=== PATIENT | female | born 1950 | race Caucasian/White ===

== ENCOUNTER 2020-12-23 09:04 | Outpatient (CLI) | payer OTHER, SELFPAY ==
[2020-12-23 09:51] LABS: Basophils Percent Auto 0.5 % (0.2-1.2); Eosinophils Absolute Auto 0.2 K/mm3 (0-0.3); Eosinophils Percent Auto 2.6 % (0-4.4); Hematocrit 44.1 % (37.0-47.0); Hemoglobin 14.6 g/dL (12.0-15.0); Immature Granulocyte Absolute 0.03 K/mm3 (0.00-0.031); Immature Granulocyte Percent A 0.5 % (0-0.5); Lymphocytes Absolute Auto 1.83 K/mm3 (0.9-3.2); Lymphocytes Percent Auto 30.3 % (18.3-44.2); Mean Corpuscular HGB Conc 33.1 g/dl (32-36); Mean Corpuscular Hemoglobin 31.7 pg (26-34); Mean Corpuscular Volume 95.9 fl (80-100); Mean Platelet Volume 10.1 fl (7.4-10.4); Monocytes Absolute Auto 0.4 K/mm3 (0.1-0.6); Monocytes Percent Auto 6.5 % (2.6-8.5); Neutrophils Absolute Auto 3.6 K/mm3 (1.3-6.7); Neutrophils Percent Auto 59.6 % (45.5-73.1); Platelet Count Result 173 k/mm3 (150-375); Red Cell Distribution Width 13.3 % (11.5-14.5)
[2020-12-23 10:17] LABS: Alanine Aminotransferase 34 U/L (4-35); Albumin Level 4.4 g/dL (3.5-5.1); Alkaline Phosphatase 96 U/L (38-126); Anion Gap 10 mmol/L (8-16); Aspartate Amino Transferase 33 U/L (14-36); Bilirubin,Total 0.6 mg/dL (0.2-1.3); Blood Urea Nitrogen 22 mg/dL (7-17); Calcium 9.9 mg/dL (8.4-10.2); Carbon Dioxide 24 mmol/L (22-30); Chloride 102 mmol/L (98-107); Cholesterol 215 mg/dL (0-200); Estimated Glomerular Filt Rate > 60; Glucose 156 mg/dL (65-105); HDL Direct 60 mg/dL; LDL Cholesterol Direct 116 mg/dL; Sodium 136 mmol/L (137-145); Triglycerides 155 mg/dL (<150)
[2020-12-23 10:36] LABS: Free T4 Free Thyroxine 1.04 ng/mL (0.78-2.19); Vitamin D 25 Hydroxy 57.7 ng/mL
[2020-12-23 10:47] LABS: Total Triiodothyronine (T3) 0.99 NG/ML (0.97-1.69)
[2020-12-23 10:54] LABS: MALB Creatinine Ratio < 7.7 mg/g (0-30); Microalbumin Urine Random < 6.0 mg/L (0-16.7)
[2020-12-23 11:15] LABS: Folic Acid 6.7 ng/mL (2.76->20)
== END 2020-12-23 09:05 | disposition home or self-care (01) ==
PROVIDERS: PCP Family Medicine; Visit Provider Nurse Practitioner
DX: Z13.0 Encounter for screening for diseases of the blood and blood-forming organs and certain disorders involving the immune mechanism (principal); Z13.6 Encounter for screening for cardiovascular disorders; Z13.220 Encounter for screening for lipoid disorders; Z13.29 Encounter for screening for other suspected endocrine disorder; R73.01 Impaired fasting glucose; R53.83 Other fatigue; I10 Essential (primary) hypertension; Z00.00 Encounter for general adult medical examination without abnormal findings; E55.9 Vitamin D deficiency, unspecified; R80.9 Proteinuria, unspecified
CPT/HCPCS: 36415; 80053; 80061; 82043; 82306; 82607; 82746; 84439; 84443; 84480; 85025

== ENCOUNTER 2021-01-18 14:08 | Outpatient (CLI) | payer OTHER, SELFPAY | END 2021-01-18 14:09 | disposition home or self-care (01) | LOC: ANHCOVIDVC 14:08 | PROVIDERS: PCP Family Medicine | DX: Z23 Encounter for immunization (principal) | CPT/HCPCS: 0001A; 91300 ==

== ENCOUNTER 2021-02-08 12:57 | Outpatient (CLI) | payer OTHER, SELFPAY | END 2021-02-08 12:58 | disposition home or self-care (01) | LOC: ANHCOVIDVC 12:57 | PROVIDERS: PCP Family Medicine | DX: Z23 Encounter for immunization (principal) | CPT/HCPCS: 0002A; 91300 ==

== ENCOUNTER 2021-03-31 15:07 | Outpatient (CLI) | payer OTHER, SELFPAY | END 2021-03-31 15:08 | disposition home or self-care (01) | LOC: ANHWCLAB 15:11 | PROVIDERS: PCP Family Medicine; Visit Provider Obstetrics & Gynecology Gynecology | DX: E55.9 Vitamin D deficiency, unspecified (principal) | CPT/HCPCS: 36415; 82306 ==

== ENCOUNTER 2021-04-02 12:36 | Outpatient (CLI) | payer OTHER, SELFPAY ==
[2021-04-02 15:55] LABS: Vitamin D 25 Hydroxy 61.2 ng/mL
== END 2021-04-02 12:37 | disposition home or self-care (01) ==
LOC: ANHWCLAB 12:38
PROVIDERS: PCP Family Medicine; Visit Provider Obstetrics & Gynecology Gynecology
DX: E55.9 Vitamin D deficiency, unspecified (principal)
CPT/HCPCS: 36415; 82306

== ENCOUNTER 2021-08-31 12:28 | Outpatient (CLI) | payer OTHER, SELFPAY ==
[2021-08-31 13:14] LABS: Alanine Aminotransferase 34 U/L (4-35); Albumin Level 4.8 g/dL (3.5-5.1); Alkaline Phosphatase 102 U/L (38-126); Anion Gap 11 mmol/L (8-16); Aspartate Amino Transferase 34 U/L (14-36); Bilirubin,Total 0.9 mg/dL (0.2-1.3); Blood Urea Nitrogen 16 mg/dL (7-17); Calcium 10.2 mg/dL (8.4-10.2); Carbon Dioxide 26 mmol/L (22-30); Chloride 101 mmol/L (98-107); Cholesterol 167 mg/dL (0-200); Estimated Glomerular Filt Rate > 60; Glucose 137 mg/dL (65-110); HDL Direct 70 mg/dL; Potassium 3.2 mmol/L (3.4-5.0); Sodium 138 mmol/L (137-145); Triglycerides 137 mg/dL (<150)
[2021-08-31 13:25] LABS: LDL Cholesterol Direct 65 mg/dL
[2021-08-31 13:30] LABS: Basophils Percent Auto 0.7 % (0.2-1.2); Eosinophils Absolute Auto 0.2 K/mm3 (0-0.3); Hematocrit 43.8 % (37.0-47.0); Immature Granulocyte Absolute 0.02 K/mm3 (0.00-0.031); Immature Granulocyte Percent A 0.4 % (0-0.5); Lymphocytes Absolute Auto 1.75 K/mm3 (0.9-3.2); Lymphocytes Percent Auto 32.5 % (18.3-44.2); Mean Corpuscular HGB Conc 34.2 g/dl (32-36); Mean Corpuscular Volume 102.3 fl (80-100); Mean Platelet Volume 10.5 fl (7.4-10.4); Monocytes Absolute Auto 0.3 K/mm3 (0.1-0.6); Monocytes Percent Auto 6.1 % (2.6-8.5); Neutrophils Absolute Auto 3.1 K/mm3 (1.3-6.7); Neutrophils Percent Auto 57.3 % (45.5-73.1); Platelet Count Result 177 k/mm3 (150-375); Red Blood Count 4.28 M/mm3 (4.2-5.4); Red Cell Distribution Width 12.4 % (11.5-14.5); White Blood Count 5.4 K/mm3 (4.5-10.0)
[2021-08-31 13:45] LABS: Total Triiodothyronine (T3) 1.21 NG/ML (0.97-1.69)
[2021-08-31 14:19] LABS: Free T4 Free Thyroxine 1.21 ng/mL (0.78-2.19)
[2021-08-31 18:02] LABS: Creatinine Urine 113.8 mg/dL
[2021-08-31 18:18] LABS: MALB Creatinine Ratio < 5.3 mg/g (0-30); Microalbumin Urine Random < 6.0 mg/L (0-16.7)
[2021-08-31 20:41] LABS: Vitamin D 25 Hydroxy 55.4 ng/mL
== END 2021-08-31 12:29 | disposition home or self-care (01) ==
PROVIDERS: PCP Family Medicine; Visit Provider Nurse Practitioner Family
DX: E11.29 Type 2 diabetes mellitus with other diabetic kidney complication (principal); I10 Essential (primary) hypertension; E78.2 Mixed hyperlipidemia; E03.9 Hypothyroidism, unspecified; E55.9 Vitamin D deficiency, unspecified
CPT/HCPCS: 36415; 80053; 80061; 82043; 82306; 84439; 84443; 84480; 85025

== ENCOUNTER 2022-05-10 10:59 | Emergency (ER) | payer OTHER, SELFPAY ==
--- NOTE | ~2022-05-10 | CT_ITS ---
EXAMINATION: CTA BRAIN/CAROTID DATE: 05/10/2022 12:42 INDICATION: Left cranial nerve III palsy TECHNIQUE: Computed tomographic angiography (CTA) of the head and neck was performed with 100 mL Omni paque-350 intravenous contrast. Multiplanar reconstructions and maximum intensity projection 3D-recon structions of the carotid arteries and of the intracranial arteries were created by the technologist on a separate workstation. Precontrast CT of the head was also obtained. Automated exposure control and iterative reconstruction technique were employed.The dose-length product was 1514.53 mGy-cm. COMPARISON: None. FINDINGS: Carotid arteries: Normal caliber of the visualized aortic arch and great vessels arising from the arch with no hemodyna mically significant stenosis, aneurysm or dissection. There is small amount of atherosclerotic calcif ic location at the bilateral carotid bulbs with 0% stenosis of the of both the left and right carotid bulbs relative to normal distal artery lumen diameter (NASCET criteria). . Cervical soft tissues, as visualized superior mediastinum and apices of lungs are unremarkable. Moderate to severe lower cervi aamir spondylosis. 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 No acute intracranial hemorrhage, acute infarction or abnormal extra axial fluid collection. Ventricles are normal and symmetric. No mass/mass effect. Dayana nges of bilateral intraocular lens replacement. The orbits, paranasal sinuses and mastoid air cells a re normal. Intracranial arteries Atherosclerotic calcifications without hemodynamically significant stenosis along the bilateral carot id siphons and at the intracranial bilateral vertebral arteries. There is no hemodynamically signific ant stenosis in the vertebral, basilar and internal carotid arteries. Vertebral arteries are codomina nt. There are no aneurysms identified. Both A1 and P1 segments are patent. Cerebral arterial arbori zation appears symmetric. No abnormally enhancing brain lesions. IMPRESSION: 1. Small amount of atherosclerotic plaque with 0% stenosis of the left and right carotid bulbs relati ve to normal distal artery lumen diameter (NASCET criteria). 2. Small old lacunar infarct at the left thalamus. No acute intracranial process. 3. Small amount of nonhemodynamically significant atherosclerotic calcification at the bilateral olvera tid siphons and bilateral vertebral arteries. Otherwise unremarkable cerebral CT angiogram with no si gnificant stenosis, aneurysm or dissection. Reviewed, dictated and finalized at location A. IMPRESSION: 1. Small amount of atherosclerotic plaque with 0% stenosis of the left and righ t carotid bulbs relative to normal distal artery lumen diameter (NASCET criteri a). 2. Small old lacunar infarct at the left thalamus. No acute intracranial proces s. 3. Small amount of nonhemodynamically significant atherosclerotic calcification at the bilateral carotid siphons and bilateral vertebral arteries. Otherwise u nremarkable cerebral CT angiogram with no significant stenosis, aneurysm or dis section.
[2022-05-10 11:04] VITALS: BP 137/88; PULSE 93; RESP 16; TEMP 36.6; O2SAT 97
[2022-05-10 11:44] LABS: Basophils Percent Auto 0.6 % (0.2-1.2); Eosinophils Absolute Auto 0.1 K/mm3 (0-0.3); Eosinophils Percent Auto 0.9 % (0-4.4); Hematocrit 42.1 % (37.0-47.0); Hemoglobin 13.9 g/dL (12.0-15.0); Immature Granulocyte Absolute 0.03 K/mm3 (0.00-0.031); Immature Granulocyte Percent A 0.4 % (0-0.5); Lymphocytes Absolute Auto 1.71 K/mm3 (0.9-3.2); Lymphocytes Percent Auto 25.1 % (18.3-44.2); Mean Corpuscular Hemoglobin 32.5 pg (26-34); Mean Corpuscular Volume 98.4 fl (80-100); Mean Platelet Volume 10.2 fl (7.4-10.4); Monocytes Absolute Auto 0.5 K/mm3 (0.1-0.6); Monocytes Percent Auto 7.8 % (2.6-8.5); Neutrophils Absolute Auto 4.4 K/mm3 (1.3-6.7); Neutrophils Percent Auto 65.2 % (45.5-73.1); Platelet Count Result 176 k/mm3 (150-375); Red Blood Count 4.28 M/mm3 (4.2-5.4); Red Cell Distribution Width 13.2 % (11.5-14.5); White Blood Count 6.8 K/mm3 (4.5-10.0)
--- NOTE | 2022-05-10 11:45 | ED.HA ---
HPI - Headache General Chief Complaint: Headache <Vaishali Bain PA-C - Last Filed: 05/10/22 13:54> Stated Complaint: HEADACHE, FROM EYE DR <MARTHA Gipson Last Filed: 05/10/22 13:54> Time Seen by Provider: 05/10/22 11:24 <Vaishali Bain PA-C - Last Filed: 05/10/22 13:54> Source: patient <MARTHA Gipson Last Filed: 05/10/22 13:54> Mode of arrival: EMS <MARTHA Gipson Last Filed: 05/10/22 13:54> Limitations: no limitations <MARTHA Gipson Last Filed: 05/10/22 13:54> History of Present Illness HPI Narrative: This is a 71 year old female that presents to the ER via EMS from her eye doctor's office. Reports over the last week she has been having constant frontal headaches. These are intermittently relieved with her tramadol and rjjx-jlj-wjmnvup pain medications. Reports she has had associated weakness in the left eye. Her eye doctor sent her for further evaluation to rule out an aneurysm causing her symptoms. Denies fever, visual changes, or any other focal numbness or weakness. <MARTHA Gipson Last Filed: 05/10/22 13:54> Related Data Home Medications: Home Medications Medication Instructions Recorded Confirmed alprazolam 1 mg tablet (Xanax) 1 mg PO BID PRN Anxiety 05/10/22 05/10/22 <Vaishali Bain PA-C - Last Filed: 05/10/22 13:54> Allergies/Adverse Reactions: Allergies Allergy/AdvReac Type Severity Reaction Status Date / Time duloxetine Allergy Unknown Verified 06/16/11 17:52 metformin Allergy Unknown Verified 03/18/10 18:21 morphine Allergy Unknown Verified 03/18/10 18:20 OPIATES Allergy Mild HIVES Uncoded 01/29/09 13:54 <MARTHA Gipson Last Filed: 05/10/22 13:54> Review of Systems Review of Systems: CONSTITUTIONAL: Denies fever EYES: Denies visual changes, redness, or discharge. NEUROLOGIC: Reports headache and weakness. Denies numbness <Vaishali Bain PA-C - Last Filed: 05/10/22 13:54> All systems reviewed & are unremarkable except as noted in HPI and below <Vaishali Bain PA-C - Last Filed: 05/10/22 13:54> PMFSH Past Medical History Medical History: Medical History (Updated 05/10/22 @ 13:45 by Vaishali Bain PA-C) History of diabetes mellitus History of hyperlipidemia History of hypertension <Vaishali Bain PA-C - Last Filed: 05/10/22 13:54> Family History Family History: Family History (Updated 06/05/14 @ 07:13 by DOCTOR UNKNOWN) Sibling Family history of mental disorder Mother Family history of lung cancer <Vaishali Bain PA-C - Last Filed: 05/10/22 13:54> Social History Social History: Social History (Updated 05/10/22 @ 11:56 by Vaishali Bain PA-C) Smoking status: Former smoker <Vaishali Bain PA-C - Last Filed: 05/10/22 13:54> Exam Narrative: GENERAL: Well-appearing, well-nourished, and in no acute distress. HEAD: Normocephalic, atraumatic. EYES: Left eyelid ptosis. Left eye is deviated laterally ENT: Nares clear, no rhinorrhea or epistaxis. Mucous membranes moist. Oropharynx without tonsillar hypertrophy exudate or other lesions. Bilateral TMs pearly wadsworth non-bulging NECK: Supple. No adenopathy or masses. CHEST: Clear to auscultation. No respiratory distress. No wheezes rales or rhonchi HEART: Regular rate and rhythm. No murmur heard. Normal peripheral pulses. EXTREMITIES: Normal range of motion. No edema. Strength equal in bilateral upper and lower extremities (5/5) SKIN: Warm, dry, no rash. NEURO: Alert and oriented x3. CN III palsy, otherwise cranial nerves are intact PSYCH: Normal mood and affect <Vaishali Bain PA-C - Last Filed: 05/10/22 13:54> Course DIRECTOR OF FINANCIAL AID/PA Physician Supervision For this patient encounter, I reviewed the DIRECTOR OF FINANCIAL AID or PA documentation, treatment plan, and medical decision making; and I had [id number] time with this patient. <Lizbeth Rojas MD - Last Filed: 05/10/22 14:25> Vital Signs Vital sign
[2022-05-10] MEDS: SODIUM CHLORIDE 0.9% IV 1,000 ML 999 ML IV CONT (11:51)
[2022-05-10 12:00] LABS: Alanine Aminotransferase 20 U/L (6-35); Alkaline Phosphatase 107 U/L (38-126); Anion Gap 14 mmol/L (8-16); Aspartate Amino Transferase 28 U/L (14-36); Bilirubin,Total 0.7 mg/dL (0.2-1.3); Blood Urea Nitrogen 19 mg/dL (7-17); Calcium 9.4 mg/dL (8.4-10.2); Carbon Dioxide 20 mmol/L (22-30); Chloride 100 mmol/L (98-107); Estimated CRCL calculation 58 ml/min; Estimated Glomerular Filt Rate > 60; Glucose 116 mg/dL (65-110); Potassium 3.4 mmol/L (3.4-5.0); Sodium 134 mmol/L (137-145)
[2022-05-10 12:19] LABS: Partial Thromboplastin Time 26.4 SECONDS (22.3-36.8); Prothrombin Time 12.7 Seconds (11.1-14.7)
[2022-05-10 12:23] LABS: Erythrocyte Sedimentation Rate 12 mm/hr (0-20)
[2022-05-10 13:15] VITALS: BP 121/64; PULSE 78; RESP 18; O2SAT 96
[2022-05-10 13:58] VITALS: BP 132/68; PULSE 70; RESP 18; O2SAT 96
== END 2022-05-10 14:04 | disposition home or self-care (01) ==
PROVIDERS: Physician Assistant; Emergency Provider Emergency Medicine; PCP Family Medicine
DX: H49.02 Third [oculomotor] nerve palsy, left eye (principal); E11.9 Type 2 diabetes mellitus without complications; E78.5 Hyperlipidemia, unspecified; I10 Essential (primary) hypertension; Z87.891 Personal history of nicotine dependence
CPT/HCPCS: 36415; 70496; 70498; 80053; 85025; 85610; 85652; 85730; 96365; 99284; J0131; J7030; Q9967

== ENCOUNTER 2023-10-13 10:20 | Outpatient (CLI) | payer OTHER, SELFPAY ==
[2023-10-13 11:03] LABS: Basophils Absolute Auto 0.1 K/mm3 (0.0-0.1); Basophils Percent Auto 0.8 % (0.2-1.2); Eosinophils Absolute Auto 0.2 K/mm3 (0-0.3); Eosinophils Percent Auto 3.9 % (0-4.4); Hematocrit 44.3 % (37.0-47.0); Hemoglobin 14.7 g/dL (12.0-15.0); Immature Granulocyte Absolute 0.02 K/mm3 (0.00-0.031); Immature Granulocyte Percent A 0.3 % (0-0.5); Lymphocytes Absolute Auto 2.51 K/mm3 (0.9-3.2); Lymphocytes Percent Auto 40.3 % (18.3-44.2); Mean Corpuscular HGB Conc 33.2 g/dl (32-36); Mean Corpuscular Hemoglobin 32.5 pg (26-34); Mean Corpuscular Volume 97.8 fl (80-100); Mean Platelet Volume 9.9 fl (7.4-10.4); Monocytes Absolute Auto 0.5 K/mm3 (0.1-0.6); Monocytes Percent Auto 7.2 % (2.6-8.5); Neutrophils Percent Auto 47.5 % (45.5-73.1); Platelet Count Result 191 k/mm3 (150-375); Red Blood Count 4.53 M/mm3 (4.2-5.4); White Blood Count 6.2 K/mm3 (4.5-10.0)
[2023-10-13 11:16] LABS: Alanine Aminotransferase 34 U/L (6-35); Albumin Level 4.5 g/dL (3.5-5.1); Alkaline Phosphatase 105 U/L (38-126); Anion Gap 11 mmol/L (8-16); Aspartate Amino Transferase 36 U/L (14-36); Bilirubin,Total 1.1 mg/dL (0.2-1.3); Blood Urea Nitrogen 18 mg/dL (7-17); Calcium 9.5 mg/dL (8.4-10.2); Carbon Dioxide 22 mmol/L (22-30); Chloride 101 mmol/L (98-107); Cholesterol 152 mg/dL (0-200); Estimated Glomerular Filt Rate > 60; Glucose 143 mg/dL (65-110); HDL Direct 93 mg/dL; Hemoglobin A1C 6.2 % (<5.7); Potassium 3.9 mmol/L (3.4-5.0); Sodium 134 mmol/L (137-145); Triglycerides 87 mg/dL (<150)
[2023-10-13 11:22] LABS: Iron 135 ug/dL (37-170)
[2023-10-13 11:27] LABS: LDL Cholesterol Direct 47 mg/dL
[2023-10-13 11:37] LABS: Free T4 Free Thyroxine 1.24 ng/mL (0.78-2.19)
[2023-10-13 11:45] LABS: Total Triiodothyronine (T3) 1.11 NG/ML (0.97-1.69)
[2023-10-13 15:58] LABS: Creatinine Urine 116.5 mg/dL
[2023-10-13 16:03] LABS: MALB Creatinine Ratio 11.8 mg/g (0-30); Microalbumin Urine Random 13.8 mg/L (0-16.7)
== END 2023-10-13 10:21 | disposition home or self-care (01) ==
LOC: ANHLAB 10:26
PROVIDERS: PCP Family Medicine; Visit Provider Nurse Practitioner Adult Health
DX: E78.5 Hyperlipidemia, unspecified (principal); I10 Essential (primary) hypertension; E11.9 Type 2 diabetes mellitus without complications; F32.A Depression, unspecified; R53.1 Weakness; R53.83 Other fatigue
CPT/HCPCS: 36415; 80053; 80061; 82043; 82728; 83036; 83540; 84439; 84443; 84480; 85025

== ENCOUNTER 2024-05-30 07:42 | Outpatient (CLI) | payer OTHER, SELFPAY ==
[2024-05-30 08:31] LABS: Basophils Percent Auto 0.4 % (0.2-1.2); Eosinophils Absolute Auto 0.2 K/mm3 (0-0.3); Eosinophils Percent Auto 2.8 % (0-4.4); Hematocrit 43.4 % (37.0-47.0); Hemoglobin 14.2 g/dL (12.0-15.0); Immature Granulocyte Absolute 0.02 K/mm3 (0.00-0.031); Immature Granulocyte Percent A 0.4 % (0-0.5); Lymphocytes Absolute Auto 1.52 K/mm3 (0.9-3.2); Lymphocytes Percent Auto 28.4 % (18.3-44.2); Mean Corpuscular HGB Conc 32.7 g/dl (32-36); Mean Corpuscular Hemoglobin 34.3 pg (26-34); Mean Corpuscular Volume 104.8 fl (80-100); Monocytes Absolute Auto 0.4 K/mm3 (0.1-0.6); Monocytes Percent Auto 8.2 % (2.6-8.5); Neutrophils Absolute Auto 3.2 K/mm3 (1.3-6.7); Neutrophils Percent Auto 59.8 % (45.5-73.1); Platelet Count Result 161 k/mm3 (150-375); Red Blood Count 4.14 M/mm3 (4.2-5.4); Red Cell Distribution Width 12.7 % (11.5-14.5); White Blood Count 5.4 K/mm3 (4.5-10.0)
[2024-05-30 08:48] LABS: Alanine Aminotransferase 35 U/L (6-35); Albumin Level 4.4 g/dL (3.5-5.1); Alkaline Phosphatase 95 U/L (38-126); Anion Gap 10 mmol/L (4-12); Aspartate Amino Transferase 42 U/L (14-36); Bilirubin,Total 1.4 mg/dL (0.2-1.3); Blood Urea Nitrogen 15 mg/dL (7-17); Calcium 8.9 mg/dL (8.4-10.2); Carbon Dioxide 27 mmol/L (22-30); Chloride 96 mmol/L (98-107); Estimated Glomerular Filt Rate > 60; Glucose 134 mg/dL (65-110); Potassium 3.4 mmol/L (3.4-5.0); Sodium 133 mmol/L (137-145)
[2024-05-30 09:52] LABS: Creatinine Urine 75.6 mg/dL
[2024-05-30 09:59] LABS: MALB Creatinine Ratio < 7.9 mg/g (0-30); Microalbumin Urine Random < 6.0 mg/L (0-16.7)
== END 2024-05-30 07:43 | disposition home or self-care (01) ==
LOC: ANHLAB 07:46
PROVIDERS: PCP Registered Nurse; Visit Provider Registered Nurse
DX: E11.9 Type 2 diabetes mellitus without complications (principal); I10 Essential (primary) hypertension; E78.5 Hyperlipidemia, unspecified
CPT/HCPCS: 36415; 80053; 82043; 83036; 85025

== ENCOUNTER 2024-06-30 14:25 | Emergency (ER) | payer OTHER, SELFPAY ==
[2024-06-30 14:36] VITALS: BP 113/96; PULSE 74; RESP 18; TEMP 36.1; O2SAT 99
[2024-06-30 14:47] VITALS: BP 113/96; PULSE 74; RESP 18; TEMP 36.1; O2SAT 99
[2024-06-30 14:49] LABS: EDUAAPPEAR Cloudy; EDUABILI Negative (Negative); EDUABLOOD Trace (Negative); EDUACOLOR1 Dark; EDUAGLUCOSE 3+ (Negative); EDUAKETONE Trace (Negative); EDUALEUKO Trace (Negative); EDUANITRATE Positive (Negative); EDUAPH 5.5; EDUAPROTEIN Negative (Negative)
--- NOTE | 2024-06-30 14:53 | ED.GENADULT ---
HPI - General Adult General Chief complaint: Urogenital-Female Stated complaint: uti symptoms Time Seen by Provider: 06/30/24 14:53 Source: patient, RN notes reviewed and old records reviewed Mode of arrival: ambulatory Limitations: no limitations History of Present Illness HPI narrative: 73-year-old female to [facility] with 2 week history of urinary frequency, urinary retention, dysuria. Patient reports fatigue over the past 2 days. Patient denies abdominal pain, back pain, flank pain, nausea, fever, body aches, bowel changes, hematuria. Patient reports history of diabetes mellitus. Patient has been treating symptoms at home with AZO. Patient resting in the exam room in no acute distress. Respirations even and nonlabored. Patient able to tolerate fluids by mouth. Related Data Home Medications Medication Instructions Recorded Confirmed alprazolam 1 mg tablet 1 mg PO BID 06/30/24 06/30/24 amlodipine 10 mg tablet 10 mg PO DAILY 06/30/24 06/30/24 canagliflozin 100 mg tablet 100 mg PO TID 06/30/24 06/30/24 (Invokana) ergocalciferol (vitamin D2) 1,250 1,250 mcg PO WEEKLY 06/30/24 06/30/24 mcg (50,000 unit) capsule fluoxetine 40 mg capsule 40 mg PO DAILY 06/30/24 06/30/24 hydrochlorothiazide 25 mg tablet 25 mg PO DAILY 06/30/24 06/30/24 tramadol 50 mg tablet 50 mg PO BID 06/30/24 06/30/24 Allergies Allergy/AdvReac Type Severity Reaction Status Date / Time metformin AdvReac Intermediate Gastrointestinal Verified 06/30/24 14:46 Upset duloxetine AdvReac Mild Hives Verified 06/30/24 14:46 morphine AdvReac Mild Hives Verified 06/30/24 14:46 OPIATES AdvReac Mild HIVES Uncoded 06/30/24 14:46 Review of Systems Review of Systems: All systems reviewed & are unremarkable except as noted in HPI and below Constitutional: Constitutional: Reports no additional constitutional complaints Eyes: Eyes: Reports no additional eye complaints ENT: Reports system reviewed and no additional complaints, except as documented Cardiovascular: Cardiovascular: Reports no additional cardiovascular complaints, Denies chest pain and Denies dyspnea Respiratory: Respiratory: Reports no additional respiratory complaints, Denies cough and Denies dyspnea Genitourinary: Genitourinary: Reports as per HPI, Reports nocturia, Reports dysuria, Denies flank pain and Reports urinary urgency Musculoskeletal: Musculoskeletal: Reports no additional musculoskeletal complaints Neurologic: Reports system reviewed and no additional complaints, except as documented Psychiatric: Psychiatric: Reports no additional psychiatric complaints PMFSH Past Medical History Medical History History of diabetes mellitus History of hyperlipidemia History of hypertension Family History Family History Sibling Family history of mental disorder Mother Family history of lung cancer Social History Social History Smoking status: Former smoker Comments At the time of my signature, I reviewed and agree with the nursing past medical, surgical, social, and family history. There is no relevant family history pertinent to the patient complaint. Exam Const: General: cooperative, healthy appearing, no acute distress, alert and well nourished Nutritional Appearance: well nourished Orientation/consciousness: patient oriented x3 Limitations: no limitations HENMT: Head: normal to inspection Ears: external ears normal Face/Nose/Sinus: Normal external nose present, Normal nares present, normal facial exam, No erythema and No edema Face and sinus: normal facial exam, no erythema and no edema Mouth: Yes Normal oral and palatal mucosa present Eyes: General: appearance normal, both eyes and all related structures Neck: Neck: normal visual inspection, full ROM and no meningeal signs Lymphat
== END 2024-06-30 15:06 | disposition home or self-care (01) ==
PROVIDERS: Emergency Provider Nurse Practitioner Family; PCP Family Medicine
DX: N39.0 Urinary tract infection, site not specified (principal); B96.89 Other specified bacterial agents as the cause of diseases classified elsewhere; E11.9 Type 2 diabetes mellitus without complications; E78.5 Hyperlipidemia, unspecified; I10 Essential (primary) hypertension; Z87.891 Personal history of nicotine dependence
CPT/HCPCS: 81003; 87077; 87086; 87088; 87186; 99213; G0463

== ENCOUNTER 2024-08-20 07:49 | Emergency (ER) | payer OTHER, SELFPAY ==
--- NOTE | ~2024-08-20 | CT_ITS ---
Non-contrast CT scan of the Abdomen and Pelvis Clinical indication: Right flank pain Technique: 2.5 mm axial scans were obtained through the abdomen and pelvis without intravenous or or al contrast. Dose reduction technique was used on this scan by utilizing automated exposure control a nd iterative reconstruction technique. The dose-length product (DLP) was 758.09 mGy-cm. Findings: Images through the lung bases reveal no abnormalities. There is no evidence of renal or ureteral calculi. The kidneys and the ureters are nondilated. Nodular contour of liver is compatible with sclerotic change. Cholecystectomy clips are present. The spleen, pancreas, and adrenals appear normal. There are atherosclerotic calcifications of the aorta. . There is no evidence of bowel obstruction. There is sigmoid diverticulosis. Small fat-containing umbi lical hernia noted. Images through the pelvis were performed. There is no evidence of ascites or lymphadenopathy. Urinary bladder unremarkable. No pelvic mass seen. No ascites. Impression: No renal, ureteral, or bladder stone. No hydronephrosis. No acute reality. Cirrhotic morphology of liver. Small fat-containing umbilical hernia. Reviewed, dictated and finalized at [facility]. PERSON Impression: No renal, ureteral, or bladder stone. No hydronephrosis. No acute reality. Cirrhotic morphology of liver. Small fat-containing umbilical hernia.
[2024-08-20 07:43] VITALS: BP 146/79; PULSE 92; RESP 20; TEMP 36.4; O2SAT 97
--- NOTE | 2024-08-20 08:01 | ED.GENADULT ---
HPI - General Adult General Chief complaint: Abdominal Pain Stated complaint: flank pain History of Present Illness HPI narrative: 73-year-old female presenting to the emergency department for evaluation for persistent right flank pain that has been ongoing for the last 4 days. Patient reports the pain has been persistent but worsening. Patient denies any pain with urination. Patient states she has no prior history of kidney stones. Patient describes right flank pain that radiates around to her right lower quadrant. Patient did have abdominal tenderness to palpation. Related Data Home Medications Medication Instructions Recorded Confirmed alprazolam 1 mg tablet 1 mg PO BID 06/30/24 06/30/24 amlodipine 10 mg tablet 10 mg PO DAILY 06/30/24 06/30/24 canagliflozin 100 mg tablet 100 mg PO TID 06/30/24 06/30/24 (Invokana) ergocalciferol (vitamin D2) 1,250 1,250 mcg PO WEEKLY 06/30/24 06/30/24 mcg (50,000 unit) capsule fluoxetine 40 mg capsule 40 mg PO DAILY 06/30/24 06/30/24 hydrochlorothiazide 25 mg tablet 25 mg PO DAILY 06/30/24 06/30/24 tramadol 50 mg tablet 50 mg PO BID 06/30/24 06/30/24 Allergies Allergy/AdvReac Type Severity Reaction Status Date / Time metformin AdvReac Intermediate Gastrointestinal Verified 06/30/24 14:46 Upset duloxetine AdvReac Mild Hives Verified 06/30/24 14:46 morphine AdvReac Mild Hives Verified 06/30/24 14:46 OPIATES AdvReac Mild HIVES Uncoded 06/30/24 14:46 Review of Systems Review of Systems: All systems reviewed & are unremarkable except as noted in HPI and below PMFSH Past Medical History Medical History History of diabetes mellitus History of hyperlipidemia History of hypertension Family History Family History Sibling Family history of mental disorder Mother Family history of lung cancer Social History Social History Smoking status: Former smoker Exam Narrative: APPEARANCE: Uncomfortable appearing due to flank pain HEAD: normocephalic, atraumatic. EYES: PERRLA/EOMI, conjunctivae clear. NOSE: Normal no drainage EARS:TMS clear with good light reflex. THROAT: Pharynx clear, no exudate. NECK: Supple. No adenopathy, no masses. RESPIRATORY: Airway patent, respirations nonlabored. Clear to auscultation bilaterally, no rales, rhonchi, wheezing. CARDIOVASCULAR: Regular rate and rhythm without murmurs rubs or gallops. ABDOMINAL: Suprapubic tenderness to palpation MUSCULOSKELETAL: Moves all extremities. Strength/ROM intact, No edema, No calf tenderness. NEURO: Alert. Cranial nerves II through XII intact. Grossly intact SKIN: Warm, dry. Normal Color Course Vital Signs Vital signs: Vital Signs Temperature 97.6 F 08/20/24 07:43 Pulse Rate 92 08/20/24 07:43 Respiratory Rate 20 08/20/24 07:43 Blood Pressure 146/79 H 08/20/24 07:43 Pulse Oximetry 97 08/20/24 07:43 Temperature 97.6 F 08/20/24 07:43 Pulse Rate 70 08/20/24 09:31 Respiratory Rate 18 08/20/24 09:31 Blood Pressure 147/98 H 08/20/24 09:31 Pulse Oximetry 99 08/20/24 09:31 Medical Decision Making [facility] Narrative Medical decision making narrative: 73-year-old female presents emergency department for evaluation for right flank pain. Patient was treated with IV fluids and IV pain medications. Patient is afebrile with no leukocytosis and hemoglobin of 15.5. Patient has no significant abnormalities on her CMP. UA is consistent with a urinary tract infection with positive leukocyte esterase high white blood cells and high bacteria. Urine culture was ordered and patient was started on IV Rocephin while in the emergency department. Patient was also provided Pyridium for pain control. Patient will be discharged home with Keflex and Pyridium. Patient was updated the results of the workup and diagnosis. All questions concerns were addressed. Differential Diagnosis Differential Diagnosis: Kidney stone, ureteral calculi, colitis, diverticulitis Vital Signs Vital Signs: Vital Signs Temperature 97.6 F 08/20/24 07:43 Pulse Rate 92 08/20/24 07:43 Respiratory Rate 20 08/20/24 07:43 Blood Pressure 146/79 H 08/20/24 07:43 Pulse Oximetry 97 08/20/24 07:43 Temperature 97.6 F 08/20/24 07:43 Pulse Rate 70 08/20/24 09:31 Respiratory Rate 18 08/20/24 09:31 Blood Pressure 147/98 H 08/20/24 09:31 Pulse Oximetry 99 08/20/24 09:31 Lab Data Lab results reviewed: Yes I reviewed the patient's lab results. 08/20/24 08:05 08/20/24 08:05 Labs: Lab Results 08/20/24 08/20/24 Range/Units 08:05 08:07 WBC 7.9 (4.5-10.0) K/mm3 RBC 4.45 (4.2-5.4) M/mm3 Hgb 15.5 H (12.0-15.0) g/dL Hct 45.8 (37.0-47.0) % MCV 102.9 H (80-100) fl MCH 34.8 H (26-34) pg MCHC 33.8 (32-36) g/dl RDW 13.2 (11.5-14.5) % Plt Count 200 (150-375) k/mm3 MPV 9.6 (7.4-10.4) fl Immature Gran % (Auto) 0.5 (0-0.5) % Neut % (Auto) 60.0 (45.5-73.1) % Lymph % (Auto) 29.4 (18.3-44.2) % Aiken % (Auto) 6.2 (2.6-8.5) % Eos % (Auto) 3.3 (0-4.4) % Baso % (Auto) 0.6 (0.2-1.2) % Lymph # (Auto) 2.33 (0.9-3.2) K/mm3 Aiken # (Auto) 0.5 (0.1-0.6) K/mm3 Eos # (Auto) 0.3 (0-0.3) K/mm3 Baso # (Auto) 0.1 (0.0-0.1) K/mm3 Abs Immat Gran (auto) 0.04 H (0.00-0.031) K/mm3 Absolute Neuts (auto) 4.8 (1.3-6.7) K/mm3 Absolute Nucleated RBC 0.000 (0.0-0.012) K/mm3 Nucleated RBC % 0.0 (0.0-0.2) % PT 13.0 (11.1-14.7) Seconds INR 1.0 APTT 27.7 (22.3-36.8) Seconds Sodium 137 (137-145) mmol/L Potassium 4.2 (3.4-5.0) mmol/L Chloride 104 (98-107) mmol/L Carbon Dioxide 22 (22-30) mmol/L Anion Gap 11 (4-12) mmol/L BUN 19 H (7-17) mg/dL Creatinine 0.90 (0.7-1.0) mg/dL Estim Creat Clear Calc 52 ml/min Estimated GFR > 60 (59 - ) Glucose 146 H (65-110) mg/dL Lactic Acid 1.1 (0.7-2.0) mmol/L Calcium 9.7 (8.4-10.2) mg/dL Total Bilirubin 0.7 (0.2-1.3) mg/dL AST 37 H (14-36) U/L ALT 37 H (6-35) U/L Alkaline Phosphatase 109 (38-126) U/L Total Protein 9.0 H (6.3-8.2) g/dL Albumin 4.8 (3.5-5.1) g/dL Lipase 288 (23-300) U/L Urine Color Yellow (Yellow) Urine Appearance Clear (Clear) Urine pH 5.5 (5.0-9.0) Ur Specific Garland 1.015 (1.001-1.035) Urine Protein Negative (Negative) mg/dL Urine Glucose (UA) 3+ H (Negative) mg/dL Urine Ketones Negative (Negative) mg/dL Ur Blood (Man) Negative (Negative) Urine Nitrate Negative (Negative) Urine Bilirubin Negative (Negative) Urine Urobilinogen 0.2 (<2.0) mg/dL Leukocyte Esterase Rfl 2+ H (Negative) TIARA/UL Urine RBC 0-2 (0-2) /hpf Urine WBC 21-50 H (0-3) /hpf Ur Squamous Epith Cells Occasional (Few) /hpf Urine Bacteria 4+ H /hpf Urine Casts 0-2 Imaging Data Radiologist's impression: Impressions Abdomen/Pelvis CT 08/20/24 08:17 Impression: No renal, ureteral, or bladder stone. No hydronephrosis. No acute reality. Cirrhotic morphology of liver. Small fat-containing umbilical hernia. Discharge Plan Discharge Clinical Impression: Flank pain, Acute UTI Patient Disposition: Home, Self-Care Condition: Stable Instructions: Antibiotic Form, Abdominal Pain (ED) Additional Instructions: Antibiotic as directed until completed. Pyridium as needed for urinary pain. Tylenol and ibuprofen for additional pain control. Have close follow-up with your primary care physician. If you have any worsening symptoms then please call or return to the emergency department Prescriptions: New phenazopyridine [Pyridium] 100 mg tablet 100 mg PO TID PRN (Reason: pain) Qty: 14 0RF cephalexin 500 mg capsule 500 mg PO Q8H 7 Days Qty: 21 0RF No Action fluoxetine 40 mg capsule 40 mg PO DAILY alprazolam 1 mg tablet 1 mg PO BID tramadol 50 mg tablet 50 mg PO BID amlodipine 10 mg tablet 10 mg PO DAILY hydrochlorothiazide 25 mg tablet 25 mg PO DAILY ergocalciferol (vitamin D2) 1,250 mcg (50,000 unit) capsule 1,250 mcg PO WEEKLY Invokana 100 mg tablet 100 mg PO TID nitrofurantoin monohyd/m-cryst [Macrobid] 100 mg capsule 100 mg PO Q12H 7 Days Qty: 14 0RF Rx Instructions: must administer with a meal/food sulfamethoxazole-trimethoprim [Bactrim] 400-80 mg tablet 1 tablet PO BID 7 Days Qty: 14 0RF Follow-up/Referrals: Zacarias Cain MD [Primary Care Provider] -
[2024-08-20] MEDS: HYDROmorphone HCL INJ (*CRX) 1 MG/ML SYR 0.5 MG IV PUSH (08:07)
[2024-08-20 08:18] LABS: Basophils Absolute Auto 0.1 K/mm3 (0.0-0.1); Basophils Percent Auto 0.6 % (0.2-1.2); Eosinophils Absolute Auto 0.3 K/mm3 (0-0.3); Eosinophils Percent Auto 3.3 % (0-4.4); Hematocrit 45.8 % (37.0-47.0); Hemoglobin 15.5 g/dL (12.0-15.0); Immature Granulocyte Absolute 0.04 K/mm3 (0.00-0.031); Immature Granulocyte Percent A 0.5 % (0-0.5); Lymphocytes Absolute Auto 2.33 K/mm3 (0.9-3.2); Lymphocytes Percent Auto 29.4 % (18.3-44.2); Mean Corpuscular HGB Conc 33.8 g/dl (32-36); Mean Corpuscular Hemoglobin 34.8 pg (26-34); Mean Corpuscular Volume 102.9 fl (80-100); Mean Platelet Volume 9.6 fl (7.4-10.4); Monocytes Absolute Auto 0.5 K/mm3 (0.1-0.6); Monocytes Percent Auto 6.2 % (2.6-8.5); Neutrophils Absolute Auto 4.8 K/mm3 (1.3-6.7); Platelet Count Result 200 k/mm3 (150-375); Red Blood Count 4.45 M/mm3 (4.2-5.4); Red Cell Distribution Width 13.2 % (11.5-14.5); White Blood Count 7.9 K/mm3 (4.5-10.0)
[2024-08-20 08:23] LABS: Add Urine Microscopic? YES; Appearance Urine Clear (Clear); Bacteria Urine 4+ /hpf; Bilirubin Urine Negative (Negative); Blood Urine Negative (Negative); Color Urine Yellow (Yellow); Glucose Urine UA 3+ mg/dL (Negative); Ketones Urine Negative (Negative); Leukocyte Esterase Ur 2+ LEU/UL (Negative); Nitrate Urine Negative (Negative); Non Pathogenic Casts 0-2; Protein Urine Negative (Negative); RBC Urine 0-2 /hpf (0-2); Specific Grav Ur 1.015 (1.001-1.035); Squamous Epithelial Cell Urine Occasional /hpf (Few); Urobilinogen Urine 0.2 mg/dL (<2.0); WBC Urine 21-50 /hpf (0-3); pH Urine 5.5 (5.0-9.0)
[2024-08-20 08:28] LABS: Alanine Aminotransferase 37 U/L (6-35); Albumin Level 4.8 g/dL (3.5-5.1); Alkaline Phosphatase 109 U/L (38-126); Anion Gap 11 mmol/L (4-12); Aspartate Amino Transferase 37 U/L (14-36); Bilirubin,Total 0.7 mg/dL (0.2-1.3); Blood Urea Nitrogen 19 mg/dL (7-17); Calcium 9.7 mg/dL (8.4-10.2); Carbon Dioxide 22 mmol/L (22-30); Chloride 104 mmol/L (98-107); Estimated CRCL calculation 52 ml/min; Estimated Glomerular Filt Rate > 60; Glucose 146 mg/dL (65-110); Lactic Acid Reflex 1.1 mmol/L (0.7-2.0); Lipase 288 U/L (23-300); Potassium 4.2 mmol/L (3.4-5.0); Sodium 137 mmol/L (137-145)
[2024-08-20 08:30] VITALS: BP 138/70; PULSE 74; RESP 18; O2SAT 97
[2024-08-20] MEDS: PHENAZOPYRIDINE HCL 100 MG TABLET 200 MG PO (09:02)
[2024-08-20 09:12] LABS: Partial Thromboplastin Time 27.7 Seconds (22.3-36.8)
[2024-08-20 09:31] VITALS: BP 147/98; PULSE 70; RESP 18; O2SAT 99
== END 2024-08-20 09:33 | disposition home or self-care (01) ==
PROVIDERS: Emergency Provider Emergency Medicine; PCP Family Medicine
DX: R10.9 Unspecified abdominal pain (principal); N39.0 Urinary tract infection, site not specified; E11.9 Type 2 diabetes mellitus without complications; E78.5 Hyperlipidemia, unspecified; I10 Essential (primary) hypertension; Z87.891 Personal history of nicotine dependence
CPT/HCPCS: 36415; 74176; 80053; 81001; 83605; 83690; 85025; 85610; 85730; 87077; 87086; 87186; 96365; 96375; 99284; A9270; J0696; J1171

== ENCOUNTER 2024-09-03 12:32 | Outpatient (CLI) | payer OTHER, SELFPAY ==
[2024-09-03 12:57] LABS: Basophils Percent Auto 0.6 % (0.2-1.2); Eosinophils Absolute Auto 0.1 K/mm3 (0-0.3); Eosinophils Percent Auto 2.2 % (0-4.4); Hematocrit 42.6 % (37.0-47.0); Hemoglobin 14.2 g/dL (12.0-15.0); Immature Granulocyte Absolute 0.02 K/mm3 (0.00-0.031); Immature Granulocyte Percent A 0.3 % (0-0.5); Lymphocytes Absolute Auto 1.29 K/mm3 (0.9-3.2); Lymphocytes Percent Auto 19.8 % (18.3-44.2); Mean Corpuscular HGB Conc 33.3 g/dl (32-36); Mean Corpuscular Hemoglobin 34.5 pg (26-34); Mean Corpuscular Volume 103.6 fl (80-100); Mean Platelet Volume 9.6 fl (7.4-10.4); Monocytes Absolute Auto 0.4 K/mm3 (0.1-0.6); Monocytes Percent Auto 6.1 % (2.6-8.5); Neutrophils Absolute Auto 4.6 K/mm3 (1.3-6.7); Platelet Count Result 171 k/mm3 (150-375); Red Blood Count 4.11 M/mm3 (4.2-5.4); Red Cell Distribution Width 12.9 % (11.5-14.5); White Blood Count 6.5 K/mm3 (4.5-10.0)
[2024-09-03 13:35] LABS: Add Urine Microscopic? YES; Appearance Urine Clear (Clear); Bacteria Urine Rare /hpf; Bilirubin Urine Negative (Negative); Blood Urine Negative (Negative); Color Urine Yellow (Yellow); Glucose Urine UA 3+ mg/dL (Negative); Ketones Urine Negative (Negative); Leukocyte Esterase Ur 2+ LEU/UL (Negative); Nitrate Urine Negative (Negative); Non Pathogenic Casts 0-2; Protein Urine Negative (Negative); RBC Urine 0-2 /hpf (0-2); Specific Grav Ur 1.017 (1.001-1.035); Squamous Epithelial Cell Urine Occasional /hpf (Few); Urobilinogen Urine 0.2 mg/dL (<2.0); pH Urine 5.5 (5.0-9.0)
== END 2024-09-03 12:33 | disposition home or self-care (01) ==
LOC: ANHLAB 12:35
PROVIDERS: PCP Family Medicine; Visit Provider Registered Nurse
DX: R30.0 Dysuria (principal)
CPT/HCPCS: 36415; 81001; 85025; 87086

== ENCOUNTER 2025-01-30 10:43 | Outpatient (CLI) | payer OTHER, SELFPAY ==
[2025-01-30 11:16] LABS: Basophils Percent Auto 0.6 % (0.2-1.2); Eosinophils Absolute Auto 0.2 K/mm3 (0-0.3); Eosinophils Percent Auto 4.7 % (0-4.4); Hematocrit 44.2 % (37.0-47.0); Hemoglobin 14.7 g/dL (12.0-15.0); Immature Granulocyte Absolute 0.02 K/mm3 (0.00-0.031); Immature Granulocyte Percent A 0.4 % (0-0.5); Lymphocytes Absolute Auto 1.73 K/mm3 (0.9-3.2); Mean Corpuscular HGB Conc 33.3 g/dl (32-36); Mean Corpuscular Hemoglobin 33.9 pg (26-34); Mean Corpuscular Volume 101.8 fl (80-100); Mean Platelet Volume 9.6 fl (7.4-10.4); Monocytes Absolute Auto 0.5 K/mm3 (0.1-0.6); Monocytes Percent Auto 9.1 % (2.6-8.5); Neutrophils Absolute Auto 2.5 K/mm3 (1.3-6.7); Neutrophils Percent Auto 50.2 % (45.5-73.1); Platelet Count Result 177 k/mm3 (150-375); Red Blood Count 4.34 M/mm3 (4.2-5.4); Red Cell Distribution Width 13.2 % (11.5-14.5); White Blood Count 4.9 K/mm3 (4.5-10.0)
[2025-01-30 11:33] LABS: Alanine Aminotransferase 27 U/L (6-35); Albumin Level 4.6 g/dL (3.5-5.1); Alkaline Phosphatase 109 U/L (38-126); Anion Gap 7 mmol/L (4-12); Aspartate Amino Transferase 27 U/L (14-36); Bilirubin,Total 1.3 mg/dL (0.2-1.3); Blood Urea Nitrogen 22 mg/dL (7-17); Calcium 9.4 mg/dL (8.4-10.2); Carbon Dioxide 25 mmol/L (22-30); Chloride 104 mmol/L (98-107); Cholesterol 236 mg/dL (0-200); Estimated Glomerular Filt Rate > 60; Glucose 143 mg/dL (65-110); HDL Direct 102 mg/dL; Potassium 4.1 mmol/L (3.4-5.0); Sodium 136 mmol/L (137-145); Triglycerides 121 mg/dL (<150)
[2025-01-30 11:43] LABS: LDL Cholesterol Direct 105 mg/dL
[2025-01-30 12:05] LABS: Hemoglobin A1C 5.7 % (<5.7)
--- OUTSIDE RECORDS SUMMARY | 2025-01-30 12:08 | XMS_ITS | CONTINUITY OF CARE DOCUMENT ---
Author Name imlton rose Address Unknown Organization [facility] Address [address] [place] [address] [address] [place] [address] Phone [phone] Care Team Providers Care Mid Level Project Manager Name Role Phone milton rose Unavailable Unavailable
[2025-01-30 12:44] LABS: Creatinine Urine 59.5 mg/dL
[2025-01-30 13:15] LABS: MALB Creatinine Ratio < 10.1 mg/g (0-30); Microalbumin Urine Random < 6.0 mg/L (0-16.7)
[2025-01-30 13:59] LABS: Hepatitis C Virus Antibody Reactive (Negative)
[2025-02-01 13:28] LABS: Hepatitis C RNA, Quant PCR <15 NOT DETECTED IU/mL (NOT DETECTED)
== END 2025-01-30 10:44 | disposition home or self-care (01) ==
PROVIDERS: PCP Family Medicine; Visit Provider Family Medicine
DX: E78.5 Hyperlipidemia, unspecified (principal); E11.9 Type 2 diabetes mellitus without complications
CPT/HCPCS: 36415; 80053; 80061; 82043; 83036; 85025; 86803; 87522

== ENCOUNTER 2025-07-29 00:12 | Day surgery (SDC) | payer OTHER, SELFPAY ==
[2025-05-15 11:55] VITALS: BMI 31.9
[2025-07-22 14:46] VITALS: BMI 31.9
[2025-07-29 08:44] VITALS: BP 118/80; PULSE 78; RESP 18; TEMP 36.1; O2SAT 99
[2025-07-29] MEDS: LACTATED RINGERS 1,000 ML 150 ML IV CONT (09:02)
--- NOTE | 2025-07-29 09:20 | WPDANESEPPF ---
Anes - Initial Pre Proc Eval Procedure: Operation Date: 07/29/25 09:30 Proposed Procedures p EGD & Screening Colonoscopy - Tushar Matos MD Date/Time: 07/29/25 09:20 Surgeon: Tushar Matos MD Pre Op Diagnosis: Unspecified cirrhosis of liver, screening Patient Data Age: 74 Gender: F Height: 1.6 m Weight: 81.81 kg Last Vital Signs Temp 36.1 C L 07/29/25 08:44 Pulse 78 07/29/25 08:44 Resp 18 07/29/25 08:44 BP 118/80 07/29/25 08:44 Pulse Ox 99 07/29/25 08:44 O2 Del Method Room Air 07/29/25 08:44 Allergies Allergy/AdvReac Type Severity Reaction Status Date / Time metformin AdvReac Intermediate Gastrointestinal Verified 07/29/25 08:43 Upset duloxetine AdvReac Mild Hives Verified 07/29/25 08:43 morphine AdvReac Mild Hives Verified 07/29/25 08:43 Home Medications ?Medication ?Instructions ?Recorded ?Confirmed ?Type alprazolam 1 mg tablet 1 mg PO BID 06/30/24 07/22/25 History canagliflozin 100 mg tablet 100 mg PO TID 06/30/24 05/15/25 History (Invokana) ergocalciferol (vitamin D2) 1,250 1,250 mcg PO WEEKLY 06/30/24 05/15/25 History mcg (50,000 unit) capsule hydrochlorothiazide 25 mg tablet 25 mg PO DAILY 06/30/24 05/15/25 History tramadol 50 mg tablet 50 mg PO BID 06/30/24 05/15/25 History atorvastatin 10 mg tablet (Lipitor) 10 mg PO DAILY 03/14/25 07/22/25 History diclofenac sodium 1 % topical gel 2 g topical QID 03/14/25 07/22/25 History (Voltaren Arthritis Pain) trazodone 50 mg tablet 50 mg PO QHS PRN insomnia 03/14/25 05/15/25 History albuterol sulfate 90 mcg/actuation 1 inh inhalation DAILY PRN 05/15/25 05/15/25 History aerosol inhaler shortness of breath or wheezing Laboratory Tests 07/29/25 08:59 POC Capillary Glucose 129 H mg/dl (65-105) Patient hx anesthesia problems: none Family hx anesthesia problems: none Results Review: All pre-operative results and documents have been reviewed as part of the pre-operative evaluation. [facility] Past Medical History Medical History (Updated 07/29/25 @ 09:21 by Beau Garcia MD) COPD (chronic obstructive pulmonary disease) HTN (hypertension) History of hyperlipidemia History of hypertension History of diabetes mellitus Family History Family History Sibling Family history of mental disorder Mother Family history of lung cancer Social History Social History Years smoked: 25 Smoking status: Former smoker Tobacco type: cigarettes Alcohol intake: never Substance use: never Substance use type: does not use Living arrangements: alone Spiritual care concerns: No Anes - Eval Final PreProcedure Day of Procedure 07/29/25 09:20 Patient weight: obese Heart: regular rate and rhythm Lungs: clear to auscultation Airway: Mallampati scale class II Neurological: alert and oriented Last oral intake: >/= 8 hours ASA classification: IV Emergent: no Anesthetic plan: proceed Anesthesia type and monitoring: general GIVS and standard monitoring Results Review: All pre-operative results and documents have been reviewed as part of the pre-operative evaluation. Informed Consent: The patient's anesthetic plan and its attendant risks and benefits were discussed with the patient/family/POA. Questions were solicited and answers provided to the satisfaction of the patient/family/POA.
--- NOTE | 2025-07-29 09:32 | PM.HPGS ---
History of Present Illness History of Present Illness Consent: Risks, benefits, and alternatives have been discussed and questions answered. Patient agrees to proceed with procedure. Chief complaint: Unspecified cirrhosis of liver, screening Narrative: Laura Quick is a 74 year old female with HCV cirrhosis (already treated) here for egd for ev screening and also needs screening colonoscopy- last one 2009. Review of Systems Review of Systems: All systems reviewed & are unremarkable except as noted in HPI and below PMFSH Past Medical History Medical History (Updated 07/29/25 @ 09:21 by Beau Garcia MD) COPD (chronic obstructive pulmonary disease) HTN (hypertension) History of hyperlipidemia History of hypertension History of diabetes mellitus Family History Family History Sibling Family history of mental disorder Mother Family history of lung cancer Social History Social History Years smoked: 25 Smoking status: Former smoker Tobacco type: cigarettes Alcohol intake: never Substance use: never Substance use type: does not use Living arrangements: alone Spiritual care concerns: No Meds Home Medications and Allergies Home Medications ?Medication ?Instructions ?Recorded ?Confirmed ?Type alprazolam 1 mg tablet 1 mg PO BID 06/30/24 07/22/25 History canagliflozin 100 mg tablet 100 mg PO TID 06/30/24 05/15/25 History (Invokana) ergocalciferol (vitamin D2) 1,250 1,250 mcg PO WEEKLY 06/30/24 05/15/25 History mcg (50,000 unit) capsule hydrochlorothiazide 25 mg tablet 25 mg PO DAILY 06/30/24 05/15/25 History tramadol 50 mg tablet 50 mg PO BID 06/30/24 05/15/25 History atorvastatin 10 mg tablet (Lipitor) 10 mg PO DAILY 03/14/25 07/22/25 History diclofenac sodium 1 % topical gel 2 g topical QID 03/14/25 07/22/25 History (Voltaren Arthritis Pain) trazodone 50 mg tablet 50 mg PO QHS PRN insomnia 03/14/25 05/15/25 History albuterol sulfate 90 mcg/actuation 1 inh inhalation DAILY PRN 05/15/25 05/15/25 History aerosol inhaler shortness of breath or wheezing Allergies Allergy/AdvReac Type Severity Reaction Status Date / Time metformin AdvReac Intermediate Gastrointestinal Verified 07/29/25 08:43 Upset duloxetine AdvReac Mild Hives Verified 07/29/25 08:43 morphine AdvReac Mild Hives Verified 07/29/25 08:43 Vital Signs Vital Signs - 24 hr 07/29/25 08:44 Temperature 97 F L Pulse Rate 78 Respiratory Rate 18 Blood Pressure 118/80 Pulse Oximetry 99 Oxygen Delivery Room Air Exam Const: General: comfortable and no acute distress Resp: Auscultation: clear to auscultation bilaterally Cardio: Rate: regular rate Rhythm: regular rhythm GI: Inspection: non-distended GI Palp: Yes Soft to palpation Skin: General skin exam: normal color Extrem: General: normal to inspection Psych: Mental Status: mental status grossly normal Assessment and Plan Assessment and plan (1) Cirrhosis: Qualifiers: Hepatic cirrhosis type: other cirrhosis Qualified Code(s): K74.69 - Other cirrhosis of liver Code(s): K74.60 - Unspecified cirrhosis of liver Status: Acute Assessment and Plan: egd (2) Colon cancer screening: Code(s): Z12.11 - Encounter for screening for malignant neoplasm of colon Status: Acute Assessment and Plan: colonoscopy
--- NOTE | 2025-07-29 09:46 | S_PTH ---
PATIENT: Laura Quick LOC: [facility]#:[id number] AGE/SX: 74/F ROOM: RE07/29/[address]: Tushar Matos MD : 1950 BED: DIS: 07/29/2025 SPEC #: [id number] RECD: 07/29/25 10:33 STATUS: PHYLLIS RESancho #: [id number] JUAN: 07/29/25 09:[address]: Tushar Matos DEPT: [facility] Surgical RECD BY: Oswaldo Ansari ENTERED: 07/29/25 10:34 SP TYPE: Surgical OTHR DR: Zacarias Cain MD Tissues: A - Gastric Biopsy B - Colon Polypectomy C - Colon Polypectomy Procedures: Hematoxylin and Eosin Stain Gross and Microscopic Level 4
--- NOTE | 2025-07-29 09:49 | SUR.OPER ---
EGD: [id number] COLON: Start 941
[2025-07-29 09:56] VITALS: BP 137/66; PULSE 73; RESP 24; O2SAT 96
[2025-07-29 10:06] VITALS: BP 121/64; PULSE 74; RESP 25; O2SAT 99
[2025-07-29 10:16] VITALS: BP 128/68; PULSE 66; RESP 16; O2SAT 99
== END 2025-07-29 10:33 | disposition home or self-care (01) ==
PROVIDERS: PCP Family Medicine; Referring Provider Nurse Practitioner Family; Visit Provider Internal Medicine Gastroenterology
PROC: 0DJ08ZZ Inspection of Upper Intestinal Tract, Via Natural or Artificial Opening Endoscopic (ICD-10-PCS; CPT 45378; principal; 2025-07-29 09:30)
DX: Z12.11 Encounter for screening for malignant neoplasm of colon (principal); D12.0 Benign neoplasm of cecum; D12.3 Benign neoplasm of transverse colon; K64.8 Other hemorrhoids; K57.30 Diverticulosis of large intestine without perforation or abscess without bleeding; K21.00 Gastro-esophageal reflux disease with esophagitis, without bleeding; K74.60 Unspecified cirrhosis of liver; K29.50 Unspecified chronic gastritis without bleeding; K25.9 Gastric ulcer, unspecified as acute or chronic, without hemorrhage or perforation; E78.5 Hyperlipidemia, unspecified; I10 Essential (primary) hypertension; J44.9 Chronic obstructive pulmonary disease, unspecified; E11.9 Type 2 diabetes mellitus without complications; E66.9 Obesity, unspecified; Z68.31 Body mass index [BMI] 31.0-31.9, adult; Z79.891 Long term (current) use of opiate analgesic; Z79.51 Long term (current) use of inhaled steroids; Z87.891 Personal history of nicotine dependence; Z80.1 Family history of malignant neoplasm of trachea, bronchus and lung
CPT/HCPCS: 43239; 45385; 82948; 88305; J2003; J7120

== ENCOUNTER 2025-08-05 13:12 | Outpatient (CLI) | payer OTHER, SELFPAY ==
[2025-08-05 13:59] LABS: Hematocrit 42.9 % (37.0-47.0); Hemoglobin 14.3 g/dL (12.0-15.0); Mean Corpuscular HGB Conc 33.3 g/dl (32-36); Mean Corpuscular Hemoglobin 33.5 pg (26-34); Mean Corpuscular Volume 100.5 fl (80-100); Platelet Count Result 160 k/mm3 (150-375); Red Blood Count 4.27 M/mm3 (4.2-5.4); White Blood Count 5.6 K/mm3 (4.5-10.0)
[2025-08-05 14:44] LABS: Thyroid Stimulating Hormone Reflex 3.180 uIU/mL (0.465-4.68)
[2025-08-05 15:06] LABS: Alanine Aminotransferase 29 U/L (6-35); Albumin Level 4.4 g/dL (3.5-5.1); Alkaline Phosphatase 100 U/L (38-126); Anion Gap 7 mmol/L (4-12); Aspartate Amino Transferase 35 U/L (14-36); Bilirubin,Total 0.5 mg/dL (0.2-1.3); Blood Urea Nitrogen 17 mg/dL (7-17); Calcium 9.2 mg/dL (8.4-10.2); Carbon Dioxide 24 mmol/L (22-30); Chloride 104 mmol/L (98-107); Cholesterol 156 mg/dL (0-200); Estimated Glomerular Filt Rate > 60; Glucose 189 mg/dL (65-110); HDL Direct 70 mg/dL; Potassium 4.1 mmol/L (3.4-5.0); Sodium 135 mmol/L (137-145); Total Protein 7.4 g/dL (6.3-8.2); Triglycerides 158 mg/dL (<150)
[2025-08-05 15:17] LABS: Hemoglobin A1C 5.6 % (<5.7)
[2025-08-05 16:00] LABS: Vitamin B12 564.0 pg/mL (239-931)
== END 2025-08-05 13:13 | disposition home or self-care (01) ==
LOC: ANHLAB 13:16
PROVIDERS: PCP Family Medicine; Visit Provider Nurse Practitioner Family
DX: E78.5 Hyperlipidemia, unspecified (principal); E11.65 Type 2 diabetes mellitus with hyperglycemia; F41.1 Generalized anxiety disorder; E55.9 Vitamin D deficiency, unspecified; Z13.9 Encounter for screening, unspecified
CPT/HCPCS: 36415; 80053; 80061; 82306; 82607; 83036; 84443; 85027